=== PATIENT | male | born 1990 | race Caucasian/White ===

== ENCOUNTER 2018-02-26 06:49 | Emergency (ER) | payer OTHER ==
[~2018-02-26] VITALS: Ht 182.9 cm; Wt 109.5 kg
[~2018-02-26 06:49] MED LIST: BACTRIM,SEPT1 TABLET PO; KEFLEX500 MG PO; NOHOMEMEDS; PERCOCET 5/31 TABLET PO
[2018-02-26 07:58] LABS: HEMOGLOBIN 15.2 G/DL (12.5-16.6); MCH 29.1 PG (29.0-34.0); MCHC 34.5 G/DL (30.0-36.0); MCV 84.3 FL (86-99); PLATELET COUNT 315 K/uL (156-360); RED BLOOD COUNT 5.22 M/uL (4.00-5.50); WHITE BLOOD COUNT 16.1 K/uL (4.1-10.2)
[2018-02-26 07:59] VITALS: BP 00/00
[2018-02-26 08:08] LABS: ALBUMIN 4.7 g/dL (3.2-4.8); CHLORIDE 105 mEq/L (99-109); SODIUM 140 mEq/L (136-147)
[2018-02-26 08:11] LABS: GLUCOSE 119 mg/dL (70-99); TOTAL PROTEIN 7.2 g/dL (6.4-8.3)
[2018-02-26 08:12] LABS: TOTAL BILIRUBIN 0.7 mg/dL (0.0-1.0)
[2018-02-26 08:13] LABS: SERUM ETHYL ALCOHOL < 10 mg/dL
[2018-02-26 08:14] LABS: ALKALINE PHOSPHATASE 82 IU/L (3-129); GFR ESTIMATE (CALCULATED) > 59 mL/min/ (58.99-99999)
[2018-02-26 08:15] LABS: UREA NITROGEN (BUN) 16 mg/dL (9-23)
[2018-02-26 08:16] LABS: AST (GOT) 23 IU/L (2-34)
[2018-02-26 08:17] LABS: ALT (GPT) 15 IU/L (3-49)
[2018-02-26 08:18] LABS: LIPASE 6 U/L (1.0-51.0)
== END 2018-02-26 07:58 | disposition left against medical advice (07) ==
LOC: EME 06:49
PROVIDERS: Physician Assistant
DX: M54.5 Low back pain (principal); V49.3XXA Car occupant (driver) (passenger) injured in unspecified nontraffic accident, initial encounter; Y92.410 Unspecified street and highway as the place of occurrence of the external cause; Y93.84 Activity, sleeping; Z53.21 Procedure and treatment not carried out due to patient leaving prior to being seen by health care provider; F17.200 Nicotine dependence, unspecified, uncomplicated
CPT/HCPCS: 80053; 81003; 83690; 85027; 99281; 99285; G0480; J7030